=== PATIENT | female | born 1945 | race Caucasian/White ===

== ENCOUNTER → 2016-07-16 | Outpatient (CLI) | payer MEDICARE, BC ==
[2014-11-01 20:00] VITALS: BP 115/65
[~2016-07-16] MED LIST: CYAN10002 IM; GABA600T2 PO; LEVO50TA5 PO; MELO15TA23 PO
--- NOTE | 2016-07-16 11:07 | RAD ---
Indication chronic cough. History of smoking. PA and lateral views of the chest were obtained and are compared to a study 11/01/2014 There are background changes compatible with emphysema and/or fibrosis. A focal infiltrate is not seen. Gross congestive heart failure is not seen. An acute finding is not apparent. IMPRESSION: Chronic changes. No acute finding seen
== END | disposition home or self-care (01) ==
LOC: DXRADRC 10:41
PROVIDERS: ATTEND Physician Assistant Medical
DX: R05 Cough (principal); Z87.891 Personal history of nicotine dependence
CPT/HCPCS: 71020

== ENCOUNTER → 2016-12-07 | Outpatient (CLI) | payer MEDICARE, BC ==
[2014-11-01 20:00] VITALS: BP 115/65
--- NOTE | 2016-12-07 15:30 | RAD ---
Indication: Low back pain for 5 months. No known injury. Technique: Lumbosacral spine series contains 3 images. Comparison is from July 15, 2010. Findings: There is mild levocurvature centered at L3. There is retrolisthesis of 3 to 4 mm at L2-L3. There is endplate sclerosis at L2-L3. There is endplate spurring greatest at L3-L4. Facet hypertrophy is greatest from L3-L4 through L5-S1. Vascular calcifications are noted. Impression: Degenerative changes in the lumbar spine have increased from prior study. They are moderate overall.
== END | disposition home or self-care (01) ==
LOC: DXRADRC 10:29
PROVIDERS: ATTEND Physician Assistant Medical
DX: M47.896 Other spondylosis, lumbar region (principal); M43.8X6 Other specified deforming dorsopathies, lumbar region; Z96.641 Presence of right artificial hip joint
CPT/HCPCS: 72100

== ENCOUNTER → 2017-03-17 | Outpatient (CLI) | payer MEDICARE ==
[2014-11-01 20:00] VITALS: BP 115/65
--- NOTE | 2017-03-17 15:59 | RAD ---
DATE: 03/17/2017 EXAM: MAMMO [facility] SCREENING BILATERAL HISTORY: Screening Mammogram COMPARISON: Screening mammogram 10/23/2015, 06/25/2012 This study was interpreted with the benefit of Computerized Aided Detection (CAD). The breast parenchyma shows scattered fibroglandular densities. Breast parenchyma level B. FINDINGS: Bilateral digital 2-D and 3-D tomosynthesis CC and MLO views. No suspicious mass, calcification or architectural distortion. No significant change from prior examination. IMPRESSION: No mammographic evidence of malignancy. Recommend routine screening mammogram in 12 months. BI-RADS CATEGORY: 1 NEGATIVE RECOMMENDED FOLLOW-UP: 12M 12 MONTH FOLLOW-UP PQRS compliance statement: Patient information was entered into a reminder system with a target due date for the next mammogram. Mammography is a sensitive method for finding small breast cancers, but it does not detect them all and is not a substitute for careful clinical examination. A negative mammogram does not negate a clinically suspicious finding and should not result in delay in biopsying a clinically suspicious abnormality. "Our facility is accredited by the [employer] Mammography Program."
== END | disposition home or self-care (01) ==
LOC: MAMMO 13:22
PROVIDERS: ATTEND Physician Assistant Medical
DX: Z12.31 Encounter for screening mammogram for malignant neoplasm of breast (principal); Z87.891 Personal history of nicotine dependence
CPT/HCPCS: 77063; 77067

== ENCOUNTER → 2017-08-11 | Outpatient (CLI) | payer MEDICARE ==
[2014-11-01 20:00] VITALS: BP 115/65
--- NOTE | 2017-08-11 15:40 | RAD ---
Bilateral lower extremity arterial ultrasound, 08/11/2017: HISTORY: Cold feet, leg cramps, smoking history Duplex evaluation of the major arteries in both lower extremities was performed including grayscale, color-flow and spectral Doppler analysis. There are mild scattered atherosclerotic plaques bilaterally. On the right, the common femoral, superficial femoral and popliteal arteries demonstrate triphasic Doppler waveforms. No significant focal velocity acceleration is seen in those vessels to suggest significant focal stenosis. Patent anterior tibial, posterior tibial and peroneal arteries are present in the right lower leg demonstrating triphasic and biphasic Doppler waveforms. The right dorsalis pedis artery demonstrates a good amplitude biphasic Doppler waveform. On the left, the common femoral and superficial femoral arteries demonstrate triphasic waveforms while the popliteal Doppler waveform is biphasic. No significant focal velocity acceleration is seen in these vessels to suggest significant focal stenosis. Patent anterior tibial, posterior tibial and peroneal arteries are present in the left lower leg demonstrating biphasic Doppler waveforms. The left dorsalis pedis artery demonstrates a good amplitude biphasic Doppler waveform. IMPRESSION: Mild scattered atherosclerotic plaquing in both lower extremities with no duplex evidence of significant arterial occlusive disease. Electronically signed by: Keith Herrera MD (08/11/2017 3:36 PM) [facility]
== END | disposition home or self-care (01) ==
LOC: US 12:10
PROVIDERS: ATTEND Physician Assistant Medical
DX: I70.293 Other atherosclerosis of native arteries of extremities, bilateral legs (principal)
CPT/HCPCS: 93925

== ENCOUNTER 2018-01-19 13:47 | Emergency (ER) | payer MEDICARE ==
[~2018-01-19] VITALS: Ht 177.8 cm; Wt 83.9 kg
--- NOTE | 2018-01-19 14:47 | RAD ---
History: Fall, left ankle pain. Comparison: None. Findings: AP, lateral, and oblique views of the left ankle. Lateral ankle soft tissue swelling is seen. No acute fracture or dislocation is identified. Small Achilles tendon and plantar calcaneal enthesophytes are seen. Midfoot degeneration is present. Impression: 1. No acute osseous traumatic injury identified. 2. Lateral ankle soft tissue swelling. Electronically signed by: Evangelista Moe MD (01/19/2018 2:43 PM) [place] [id number]
--- NOTE | 2018-01-19 14:54 | RAD ---
EXAM: Head and cervical spine CT without contrast. HISTORY: Fall. TECHNIQUE: Computed tomographic images of the head and cervical spine were obtained without intravenous contrast. COMPARISON: None. FINDINGS: Head: There is no hemorrhage. There is no mass effect or midline shift. There is no hydrocephalus. The moyer-white matter differentiation pattern is intact. There are subtle areas of hypodensity within the cerebral white matter, likely due to chronic small vessel disease. There is near complete opacification of the visualized portions of the right ethmoid and maxillary sinus. The mastoid air cells are clear. No calvarial lesion is seen. Cervical spine: There is cervical kyphosis. There is mild anterolisthesis of C2 on C3, C3 on C4 and C4 on C5 and C7 on T1. There is degenerative endplate remodeling with disc space narrowing and osteophytosis primarily at C5-C6 and C6-C7. There are multiple endplate Schmorl's nodes. There is no fracture. There is no suspicious osseous lesion. There is a small bone island within C2. There is a small hemangioma within the right lateral aspect of C3 At C2-C3, there is severe left facet arthropathy. There is no stenosis. At C3-C4, there is moderate bilateral facet arthropathy. There is no stenosis.. At C4-C5, there is endplate osteophytosis. There is mild left facet arthropathy. There is no stenosis At C5-C6, there is a broad-based posterior central disc protrusion superimposed on a disc bulge and endplate osteophytosis. There is mild right facet arthropathy. There is bilateral uncovertebral ovary. There is moderate right and mild left foraminal stenosis. At C6-C7, there is a disc bulge and endplate osteophytosis. There is uncovertebral arthropathy. There is minimal left foraminal stenosis. IMPRESSION: 1. No acute intracranial finding or evidence of acute cervical spine trauma. 2. Multilevel degenerative change of the cervical spine, described in detail above. Electronically signed by: Maria T Hargrove MD (01/19/2018 2:51 PM) [id number]
--- NOTE | 2018-01-19 15:14 | PHYS DOC ---
Past History Past Medical History: Hypothyroid Past Surgical History: Hip Replacement, Tubal ligation Smoking: Non-smoker Alcohol Use: Occasionally Drug Use: None Adult General Chief Complaint Chief Complaint: ANKLE PROBLEM HPI HPI Patient is a 72 year old female who presents with complaining of a fall and injury to left ankle. Patient states she had an accidental fall prior to arrival to ER and her head without loss of consciousness and complaining of pain in left ankle with edema of left lower malleolus. Patient states she is able to bear weight but is painful. Patient denies focal neurodeficit and other injuries. Review of Systems Review of Systems Constitutional: Denies fever or chills [] Eyes: Denies change in visual acuity, redness, or eye pain [] HENT: Denies nasal congestion or sore throat [] Respiratory: Denies cough or shortness of breath [] Cardiovascular: No additional information not addressed in HPI [] GI: Denies abdominal pain, nausea, vomiting, bloody stools or diarrhea [] : Denies dysuria or hematuria [] Musculoskeletal: Denies back pain, reports joint pain [] Integument: Denies rash or skin lesions [] Neurologic: Denies headache, focal weakness or sensory changes [] Endocrine: Denies polyuria or polydipsia [] All other systems were reviewed and found to be within normal limits, except as documented in this note. Allergies Allergies Allergies Coded Allergies Type Severity Reaction Last Updated Verified No Known Drug Allergies 09/02/14 No Physical Exam Physical Exam Constitutional: Well developed, well nourished, no acute distress, non-toxic appearance. [] HENT: Normocephalic, atraumatic, oropharynx moist, no oral exudates, nose normal. [] Eyes: PERRLA, EOMI, conjunctiva normal, no discharge. [] Neck: Normal range of motion, no tenderness, supple, no stridor. [] Cardiovascular:Heart rate regular rhythm, no murmur [] Lungs & Thorax: Bilateral breath sounds clear to auscultation [] Abdomen: Bowel sounds normal, soft, no tenderness, no masses, no pulsatile masses. [] Skin: Warm, dry, no erythema, no rash. [] Back: No tenderness, no CVA tenderness. [] Extremities: Left ankle with edema of the lateral malleolus and painful range of motion without point tenderness, no neurovascular deficit, no cyanosis, no clubbing. Neurologic: Alert and oriented X 3, normal motor function, normal sensory function, no focal deficits noted. [] Psychologic: Affect normal, judgement normal, mood normal. [] Current Patient Data Vital Signs Vital Signs Date Time Temp Pulse Resp B/P (MAP) Pulse Ox O2 Delivery O2 Flow Rate FiO2 01/19/18 13:47 97.9 88 18 97 Room Air EKG EKG [] Radiology/Procedures Radiology/[place] [address] IMAGING REPORT Signed PATIENT: MERRY ERAZO ACCOUNT: [id number] : 1945 LOCATION: ER AGE: 72 SEX: F EXAM STATUS: REG ER ORD. PHYSICIAN: ADAM GASTON MD REASON: injury/pain PROCEDURE: ANKLE LEFT 3V History: Fall, left ankle pain. Comparison: None. Findings: AP, lateral, and oblique views of the left ankle. Lateral ankle soft tissue swelling is seen. No acute fracture or dislocation is identified. Small Achilles tendon and plantar calcaneal enthesophytes are seen. Midfoot degeneration is present. Impression: 1. No acute osseous traumatic injury identified. 2. Lateral ankle soft tissue swelling. Electronically signed by: Evangelista Arellano MD (01/19/2018 2:43 PM) [place] [id number] DICTATED AND SIGNED BY: EVANGELISTA ARELLANO MD DATE: 01/19/18 8932 CC: ADAM GASTON MD; GALINA ISAAC OR ~ [address] [address] IMAGING REPORT Signed PATIENT: MERRY ERAZO ACCOUNT: [id number] : 1945 LOCATION: ER AGE: 72 SEX: F EXAM STATUS: REG ER ORD. PHYSICIAN: ADAM GASTON MD REASON: fall PROCEDURE: CT HEAD AND CERVICAL SPINE WO EXAM: Head and cervical spine CT without contrast. HISTORY: Fall. TECHNIQUE: Computed tomographic images of the head and cervical spine were obtained without intravenous contrast. COMPARISON: None. FINDINGS: Head: There is no hemorrhage. There is no mass effect or midline shift. There is no hydrocephalus. The moyer-white matter differentiation pattern is intact. There are subtle areas of hypodensity within the cerebral white matter, likely due to chronic small vessel disease. There is near complete opacification of the visualized portions of the right ethmoid and maxillary sinus. The mastoid air cells are clear. No calvarial lesion is seen. Cervical spine: There is cervical kyphosis. There is mild anterolisthesis of C2 on C3, C3 on C4 and C4 on C5 and C7 on T1. There is degenerative endplate remodeling with disc space narrowing and osteophytosis primarily at C5-C6 and C6-C7. There are multiple endplate Schmorl's nodes. There is no fracture. There is no suspicious osseous lesion. There is a small bone island within C2. There is a small hemangioma within the right lateral aspect of C3 At C2-C3, there is severe left facet arthropathy. There is no stenosis. At C3-C4, there is moderate bilateral facet arthropathy. There is no stenosis.. At C4-C5, there is endplate osteophytosis. There is mild left facet arthropathy. There is no stenosis At C5-C6, there is a broad-based posterior central disc protrusion superimposed on a disc bulge and endplate osteophytosis. There is mild right facet arthropathy. There is bilateral uncovertebral ovary. There is moderate right and mild left foraminal stenosis. At C6-C7, there is a disc bulge and endplate osteophytosis. There is uncovertebral arthropathy. There is minimal left foraminal stenosis. IMPRESSION: 1. No acute intracranial finding or evidence of acute cervical spine trauma. 2. Multilevel degenerative change of the cervical spine, described in detail above. Electronically signed by: Maria T Westbrook MD (01/19/2018 2:51 PM) [id number] DICTATED AND SIGNED BY: MARIA T WESTBROOK MD DATE: 01/19/18 1447 CC: ADAM GASTON MD; GALINA ISAAC ~ Course & Med Decision Making Course & Med Decision Making Pertinent Imaging studies reviewed. (See chart for details) Evaluation of patient in ER showed 72-year-old male patient with a fall and injury to left ankle. Patient had unremarkable physical exam except for lateral malleolus edema and tenderness. X-ray did not show fracture. Patient had negative CT head and C-spine. Patient did not want to have pain medication in ER. Plan to apply gel cast splint and instruction to continue using her home cane and follow-up with her primary care physician. Jaz Disclaimer Dragon Disclaimer This electronic medical record was generated, in whole or in part, using a voice recognition dictation system. Departure Departure: Impression: Primary Impression: Moderate left ankle sprain Additional Impressions: Fall at home Head injury Disposition: HOME, SELF-CARE (at 1522) Condition: IMPROVED Referrals: GALINA ISAAC (PCP) Patient Instructions: Ankle Sprain, Fall Prevention and Home Safety Additional Instructions: Apply ice on the affected area Follow-up with your primary care physician in 3-5 days Return to ER if not getting better Scripts Hydrocodone Bit/Acetaminophen (NORCO 5-325 TABLET) 1 Each Tablet 1 TAB PO PRN Q6HRS PRN for PAIN, #14 TAB 0 Refills Prov: ADAM GASTON MD 01/19/18 Naproxen (NAPROSYN) 500 Mg Tablet 500 MG PO BID for pain, #20 TAB Prov: ADAM GASTON MD 01/19/18 Problem Qualifiers ADAM GASTON MD Jan 19, 2018 15:14
[2018-01-19 15:23] VITALS: BP 128/60
[2018-01-19] MEDS ORDERED: HYDR-3165 PO (15:24)
[2018-01-19] MEDS ORDERED: NAPR-683 PO (15:24)
== END 2018-01-19 15:30 | disposition home or self-care (01) ==
LOC: ER 13:47
DX: S93.402A Sprain of unspecified ligament of left ankle, initial encounter (principal); S09.90XA Unspecified injury of head, initial encounter; E03.9 Hypothyroidism, unspecified; W18.30XA Fall on same level, unspecified, initial encounter; Y93.89 Activity, other specified; Y92.89 Other specified places as the place of occurrence of the external cause; Y99.8 Other external cause status
CPT/HCPCS: 29515; 70450; 72125; 73610; 99284-25

== ENCOUNTER → 2018-03-02 | Outpatient (CLI) | payer MEDICARE ==
[~2018-03-02] MED LIST changes: +HYDR-3165 PO; +NAPR-683 PO
--- NOTE | 2018-03-02 13:18 | RAD ---
EXAM: Head an maxillofacial bone CT without contrast. HISTORY: Fall. Headache. TECHNIQUE: Computed tomographic images of the head and maxillofacial bones were obtained without contrast. *One or more of the following individualized dose reduction techniques were utilized for this examination: 1. Automated exposure control. 2. Adjustment of the mA and/or kV according to patient size. 3. Use of iterative reconstruction technique. COMPARISON: 01/19/2018. FINDINGS: There is no acute or subacute extra-axial or intraparenchymal hemorrhage. There is no mass effect or midline shift. There is no hydrocephalus. The moyer-white matter differentiation pattern is intact. There are subtle areas of hypodensity within the cerebral white matter, likely artifactual or due to chronic small vessel disease. No suspicious calvarial lesion is seen. There is complete opacification of the right frontal and maxillary sinus and near complete opacification of the right ethmoid sinus. There is obstruction of the right ostiomeatal unit and suspected superior medial right maxillary sinus wall erosion. There is no significant nasal septal deviation. The left paranasal sinuses are clear. The left ostiomeatal unit is patent. No fracture is seen. There is lucency surrounding the roots of the right second maxillary molar, likely due to a periapical abscess. IMPRESSION: 1. No acute intracranial finding. 2. Severe right maxillary and moderate right ethmoid sinus disease with obstruction of the right ostiomeatal unit and suspected erosion of the superior medial right maxillary sinus wall. There is no sinus wall expansion to suggest an underlying mucocele. 3. Suspected periapical abscess surrounding the roots of the second maxillary molar. Correlate with dental exam findings. Electronically signed by: Maria T Hargrove MD (03/02/2018 1:14 PM) [place] [id number]
== END | disposition home or self-care (01) ==
LOC: CT 12:47
PROVIDERS: ATTEND Physician Assistant Medical
DX: S09.90XD Unspecified injury of head, subsequent encounter (principal); R51 Headache; W19.XXXD Unspecified fall, subsequent encounter
CPT/HCPCS: 70450; 70486

== ENCOUNTER → 2018-03-21 | Outpatient (CLI) | payer MEDICARE ==
--- NOTE | 2018-03-28 08:28 | RAD ---
DATE: 03/21/2018 EXAM: MAMMO [facility] SCREENING BILATERAL HISTORY: Screening Mammogram COMPARISON: Mammogram 03/17/2017, 10/23/2015 This study was interpreted with the benefit of Computerized Aided Detection (CAD ). The breast parenchyma shows scattered fibroglandular densities. Breast parenchyma level B. FINDINGS: Bilateral digital 2-D and 3-D tomosynthesis CC and MLO views. Stable benign intramammary lymph node in the lateral right breast. No suspicious mass, calcification or architectural distortion. No significant change from prior examination IMPRESSION: No mammographic evidence of malignancy. Recommend routine screening mammogram in 12 months. BI-RADS CATEGORY: 1 NEGATIVE RECOMMENDED FOLLOW-UP: PQRS compliance statement: Patient information was entered into a reminder system with a target due date for the next mammogram. Mammography is a sensitive method for finding small breast cancers, but it does not detect them all and is not a substitute for careful clinical examination. A negative mammogram does not negate a clinically suspicious finding and should not result in delay in biopsying a clinically suspicious abnormality. "Our facility is accredited by the [employer] Mammography Program." MTDD
== END | disposition home or self-care (01) ==
LOC: MAMMO 13:28
PROVIDERS: ATTEND Physician Assistant Medical
DX: Z12.31 Encounter for screening mammogram for malignant neoplasm of breast (principal)
CPT/HCPCS: 77063; 77067

== ENCOUNTER 2018-05-06 23:15 | Emergency (ER) | payer MEDICARE ==
[~2018-05-06] VITALS: Ht 177.8 cm; Wt 83.9 kg
[~2018-05-06 23:15] MED LIST changes: -GABA600T2 PO; +GABA600T7 PO
[2018-05-06 23:45] VITALS: BP 124/63
[2018-05-07] MEDS ORDERED: IPRATRPIUM/ALBUTEROL 0.5/2.5MG 3 ML NEBU. ONE (00:35)
[2018-05-07] MEDS ORDERED: IPRATRPIUM/ALBUTEROL 0.5/2.5MG 3 ML NEBU. NEB ONE (01:00)
--- NOTE | 2018-05-07 01:26 | PHYS DOC ---
Past History Past Medical History: Hypothyroid Past Surgical History: Hip Replacement, Tubal ligation Smoking: Non-smoker Alcohol Use: Occasionally Drug Use: None Adult General Chief Complaint Chief Complaint: COUGH HPI HPI Patient is a 73-year-old female who presents with complaint of a few month history of sinus infection and has been on a total of 4 different sets of antibiotics. She states that she was first diagnosed little bit before . She states that she is on her final course of antibiotics right now and states that this evening she started to get some soreness in her chest and is worried about the possibility of a pneumonia or her heart. She states that it does hurt to cough and chest discomfort is worse with deep breathing. She denies any fever. She also denies any nausea, vomiting or diaphoresis. Review of Systems Review of Systems Constitutional: Denies fever or chills [] HENT: Complains of sinus congestion and sore throat [] Respiratory: Complains of cough and shortness of breath [] Cardiovascular: No additional information not addressed in HPI [] GI: Denies abdominal pain, nausea, vomiting or diarrhea [] Integument: Denies rash or skin lesions [] Neurologic: Denies headache, focal weakness or sensory changes [] All other systems were reviewed and found to be within normal limits, except as documented in this note. Current Medications Current Medications Current Medications Medications (Trade) Dose Ordered Sig/Bri Start Time Stop Time Status Last Admin Dose Admin Albuterol/ Ipratropium (Duoneb) 3 ml STK-MED ONCE 05/07/18 00:35 05/07/18 00:36 DC Allergies Allergies Allergies Coded Allergies Type Severity Reaction Last Updated Verified No Known Drug Allergies 09/02/14 No Physical Exam Physical Exam Constitutional: Well developed, well nourished, no acute distress, non-toxic appearance. [] HENT: Normocephalic, atraumatic, bilateral external ears normal, oropharynx moist, no oral exudates, nose normal. [] Eyes: PERRLA, EOMI, conjunctiva normal, no discharge. [] Neck: Normal range of motion, no tenderness, supple, no stridor. [] Cardiovascular:Heart rate regular rhythm, no murmur [] Lungs & Thorax: Bilateral breath sounds clear to auscultation [] Abdomen: Bowel sounds normal, soft, no tenderness. [] Skin: Warm, dry, no erythema, no rash. [] Extremities: No tenderness, no cyanosis, no clubbing, ROM intact, no edema. [] Neurologic: Alert and oriented X 3, no focal deficits noted. [] Current Patient Data Vital Signs Vital Signs Date Time Temp Pulse Resp B/P (MAP) Pulse Ox O2 Delivery O2 Flow Rate FiO2 05/07/18 00:45 94 Room Air 05/06/18 23:45 98.7 67 18 EKG EKG EKG demonstrates normal sinus rhythm with no ST segment abnormalities.[] Radiology/Procedures Radiology/Procedures [] Impressions: Chest x-ray demonstrates no acute process. Course & Med Decision Making Course & Med Decision Making Pertinent Labs and Imaging studies reviewed. (See chart for details) [] Dragon Disclaimer Dragon Disclaimer This electronic medical record was generated, in whole or in part, using a voice recognition dictation system. Departure Departure: Impression: Primary Impression: Chest wall pain Additional Impression: Upper respiratory infection Disposition: 01 HOME, SELF-CARE Condition: STABLE Referrals: GALINA ISAAC (PCP) Patient Instructions: Chest Wall Pain, Upper Respiratory Infection, Adult Problem Qualifiers Additional Impression: Upper respiratory infection URI type: unspecified URI Qualified Codes: J06.9 - Acute upper respiratory infection, unspecified BLANCA NOBLES Jr. DO May 07, 2018 01:26
--- NOTE | 2018-05-07 06:30 | EKG ---
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
--- NOTE | 2018-05-07 08:05 | RAD ---
Chest, PA and Lateral: Technique: PA and lateral views of the chest were obtained. History: Cough. Comparison: None. Findings: The heart and pulmonary vasculature appear within normal limits. The lungs are clear. The pleural margins are clear. Impression: No acute chest process is seen. Electronically signed by: Lonnie Ramírez MD (05/07/2018 8:03 AM) [facility]
== END 2018-05-07 01:48 | disposition home or self-care (01) ==
LOC: ER 23:15
DX: J06.9 Acute upper respiratory infection, unspecified (principal); R07.89 Other chest pain; E03.9 Hypothyroidism, unspecified
CPT/HCPCS: 71046; 93005; 94640; 99284; J7620

== ENCOUNTER → 2018-12-20 | Outpatient (CLI) | payer MEDICARE ==
[2018-12-20 16:39] LABS: ALBUMIN 3.4 g/dL (3.4-5.0); ALBUMIN/GLOBULIN RATIO 0.9 (1.0-1.7); CALCIUM 8.7 mg/dL (8.5-10.1); CREATININE 0.8 mg/dL (0.6-1.0); GFR 70.3; TOTAL BILIRUBIN 0.2 mg/dL (0.2-1.0); TOTAL PROTEIN 7.1 g/dL (6.4-8.2)
[2018-12-20 17:05] LABS: BACTERIA,URINE 0 /HPF (0-FEW); BILIRUBIN,URINE NEG (NEG); CLARITY,URINE HAZY; COLOR,URINE YELLOW; GLUCOSE,URINE NEG (NEG); NITRITE,URINE NEG (NEG); RBC,URINE 0 /HPF (0-2); SQUAMOUS EPITHELIAL CELL,UR OCC /LPF; UROBILINOGEN,URINE 0.2 mg/dL (0.2 mg/dL); WBC,URINE OCC /HPF (0-4)
[2018-12-20 17:33] LABS: BASO % 1 % (0-3); EOS # 0.1 x10^3/uL (0.0-0.7); EOS % 1 % (0-3); HEMATOCRIT 42.8 % (36.0-47.0); HEMOGLOBIN 14.2 g/dL (12.0-15.5); LYMPH # 2.1 x10^3/uL (1.0-4.8); LYMPH % 25 % (24-48); MEAN CORPUSCULAR HEMOGLOBIN 30 pg (25-35); MEAN CORPUSCULAR HGB CONC 33 g/dL (31-37); MEAN CORPUSCULAR VOLUME 90 fL (79-100); MONO # 0.7 x10^3/uL (0.0-1.1); MONO % 8 % (0-9); NEUT # 5.7 x10^3uL (1.8-7.7); NEUT % 66 % (31-73); PLATELET COUNT 310 x10^3/uL (140-400); RED BLOOD COUNT 4.78 x10^6/uL (3.50-5.40); RED CELL DISTRIBUTION WIDTH 14.4 % (11.5-14.5); WHITE BLOOD COUNT 8.7 x10^3/uL (4.0-11.0)
--- NOTE | 2018-12-21 03:38 | RAD ---
CT Head W/O Contrast: History: Balance and sinus infection Comparison: none Axial images were obtained without contrast. The moyer and white matter appears normal and symmetrical for the patients age. There is no mass effect, extraaxial fluid collections or hydrocephalus. There is no gross bleed. There is no focal loss of moyer-white matter distinction to suggest acute ischemia, i.e. stroke. Impression: No acute findings. End impression CT maxillofacial without contrast History: Imbalance and sinus infections Axial helical images of the face were obtained without contrast. Axial, sagittal and coronal reconstruction was performed. The nasal septum is mostly midline. The ostiomeatal complexes are narrow but patent. The paranasal sinuses are clear. The visualized osseous structures appear intact. The orbits appear normal. Impression: No acute findings. PQRS Compliance Statement: One or more of the following individualized dose reduction techniques were utilized for this examination: 1. Automated exposure control 2. Adjustment of the mA and/or kV according to patient size 3. Use of iterative reconstruction technique Electronically signed by: Rony [place] III, MD (12/21/2018 3:35 AM) [id number]
== END | disposition home or self-care (01) ==
LOC: CT 14:11
PROVIDERS: ATTEND Physician Assistant Medical
DX: R26.89 Other abnormalities of gait and mobility (principal); R53.83 Other fatigue; R60.9 Edema, unspecified; E53.8 Deficiency of other specified B group vitamins; N39.3 Stress incontinence (female) (male); E03.9 Hypothyroidism, unspecified
CPT/HCPCS: 36415; 70450; 70486; 80053; 80061; 81001; 82607; 82728; 83540; 83550; 85025

== ENCOUNTER → 2019-02-26 | Outpatient (CLI) | payer MEDICARE ==
--- NOTE | 2019-02-26 13:26 | RAD ---
EXAM: Cervical spine, 6 views; right shoulder, 3 views. HISTORY: Pain. COMPARISON: None. FINDINGS: Cervical spine: 6 views of the cervical spine are obtained. There is cervical kyphosis. There is minimal anterolisthesis of C2 on C3 and C3 on C4. There is degenerative endplate remodeling with disc space narrowing and osteophytosis at C5-C6 and C6-C7. There is multilevel facet arthropathy. There is partial ankylosis of the anterior right first and second ribs, a normal variant. Right shoulder: 3 views of the right shoulder obtained. There is no fracture, dislocation or subluxation. There is minimal acromioclavicular and glenohumeral osteoarthritis. IMPRESSION: 1. No acute osseous finding. 2. Multilevel degenerative change involving the cervical spine, primarily at C5-C6 and C6-C7. There is associated foraminal stenosis at these levels. 3. Minimal right acromioclavicular and glenohumeral osteoarthritis. Electronically signed by: Maria T Hargrove MD (02/26/2019 1:23 PM) [id number]
== END | disposition home or self-care (01) ==
LOC: DXRAD 11:48
PROVIDERS: ATTEND Physician Assistant Medical
DX: M43.12 Spondylolisthesis, cervical region (principal); M48.02 Spinal stenosis, cervical region; M25.78 Osteophyte, vertebrae; M40.292 Other kyphosis, cervical region; M19.011 Primary osteoarthritis, right shoulder
CPT/HCPCS: 72050; 73030

== ENCOUNTER → 2019-03-22 | Outpatient (CLI) | payer MEDICARE ==
--- NOTE | 2019-03-22 15:54 | RAD ---
EXAM: BILATERAL DIGITAL 3D SCREENING MAMMOGRAPHY. HISTORY: Routine mammographic screening. TECHNIQUE: Bilateral digital 3D and tomographic images were obtained in CC and MLO projections. Computer-aided detection was applied. COMPARISON: 03/21/2018. COMPOSITION: B. There are scattered areas of fibroglandular density. FINDINGS: Coarse an vascular calcifications are benign. There are no suspicious masses, microcalcifications or architectural distortion. The parenchymal pattern is stable. BI-RADS CATEGORY 2: Benign. RECOMMENDATION: 1. Routine screening mammography in one year. If mammography demonstrates dense breast tissue (heterogenously dense or extremely dense, category C or D), which could hide abnormalities, and if other risk factors for breast cancer have been identified, supplemental screening tests that may be suggested by the ordering physician may be of benefit. Dense breast tissue, in and of itself, is a relatively common condition. Therefore, this information is not provided to cause undue concern, but rather to raise awareness and to promote discussion with the referring physician regarding the presence of other risk factors, in addition to dense breast tissue. The results of this mammography examination is provided to the patient and referring physician. The patient should contact their referring physician if any questions or concerns exist regarding this report. PQRS compliance statement - Patient information was entered into a reminder system with a target due date for the next mammogram. "Our facility is accredited by the [employer] Mammography [employer]." Electronically signed by: Siomara Manjarrez MD (03/22/2019 3:51 PM) [id number]
== END | disposition home or self-care (01) ==
LOC: MAMMO 13:00
PROVIDERS: ATTEND Physician Assistant Medical
DX: Z12.31 Encounter for screening mammogram for malignant neoplasm of breast (principal); N64.89 Other specified disorders of breast
CPT/HCPCS: 77063; 77067

== ENCOUNTER → 2020-04-29 | Outpatient (CLI) | payer MEDICARE ==
--- NOTE | 2020-04-29 13:36 | RAD ---
EXAM: Chest, 2 views. HISTORY: Cough. COMPARISON: None. FINDINGS: 2 views of the chest are obtained. There is no infiltrate, pleural effusion or pneumothorax . The heart is normal in size. 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 IMPRESSION: No acute pulmonary finding. Electronically signed by: Maria T Hargrove MD (04/29/2020 1:34 PM) [id number]
== END ==
LOC: RAD 12:27
PROVIDERS: ATTEND Physician Assistant Medical
DX: R05 Cough (principal)
CPT/HCPCS: 71046

== ENCOUNTER → 2020-06-05 | Outpatient (CLI) | payer MEDICARE ==
--- NOTE | 2020-06-05 17:30 | RAD ---
EXAM: DUAL ENERGY X-RAY ABSORPTIOMETRY (DEXA). HISTORY: Postmenopausal screening. FINDINGS: The lowest measured T-score is -1.6 in the left femoral neck, based on a bone mineral densi ty of 0.745 g/cm^2. Refer to the worksheets for full detail. There has been a 6.9 percent decrease in density of the left hip and 1.7 percent decrease in density of the lumbar spine compared to a study performed 12/24/2015. IMPRESSION: 1. Low bone mass. Bone mineral density yields a T-score between -1.0 and -2.5. Fracture risk is incre ased. 2. FRAX report: Not calculated. METHODOLOGY: Dual energy x-ray absorptiometry was performed to measure bone mineral density. The foll owing analysis is based on the 2019 Official Positions of the International Society for Clinical Dens itometry: Measurements of the hips and the average of L1-L4 are preferred. When the spine and/or hip cannot be feasibly measured or interpreted, or in the setting of hyperparathyroidism, distal radial bone minera l density may be measured. The lumbar spine T-score is based on the average bone mineral density of L1-L4. In the setting of art ifact or anatomic abnormality, some lumbar levels may be excluded, and the remaining levels used for calculation. A single lumbar level is not used for diagnosis, and if only a single level is available for assessment, another anatomic site will be used to assign a diagnosis. The hip T-score is based on the bone mineral density measurement of the femoral neck or total proxima l femur of either side, whichever is lowest. Bilateral mean values are not used for diagnosis. The forearm T-score is derived from 33% of the distal radius of the nondominant forearm. Electronically signed by: Maria T Hargrove MD (06/05/2020 5:28 PM) [facility]
--- NOTE | 2020-06-06 18:59 | RAD ---
DATE: 06/05/2020 EXAM: MAMMO [facility] SCREENING BILATERAL HISTORY: Screening COMPARISON: Multiple prior exams including 03/22/2019, 03/21/2018, and 03/17/2017 This study was interpreted with the benefit of Computerized Aided Detection (CAD). Breast Density: SCATTERED The breast parenchyma shows scattered fibroglandular densities. Breast parenchyma level B. FINDINGS: No mass, suspicious calcification, or architectural distortion in either breast. IMPRESSION: No evidence of malignancy. BI-RADS CATEGORY: 1 NEGATIVE RECOMMENDED FOLLOW-UP: 12M 12 MONTH FOLLOW-UP PQRS compliance statement: Patient information was entered into a reminder system with a target due date for the next mammogram. Mammography is a sensitive method for finding small breast cancers, but it does not detect them all and is not a substitute for careful clinical examination. A negative mammogram does not negate a clinically suspicious finding and should not result in delay in biopsying a clinically suspicious abnormality. "Our facility is accredited by the [employer] Mammography Program."
== END ==
LOC: MAMMO 13:54
PROVIDERS: ATTEND Physician Assistant Medical
DX: Z12.31 Encounter for screening mammogram for malignant neoplasm of breast (principal); N95.8 Other specified menopausal and perimenopausal disorders
CPT/HCPCS: 77063; 77067; 77080

== ENCOUNTER → 2020-10-17 | Outpatient (CLI) | payer MEDICARE ==
--- NOTE | 2020-10-17 11:33 | RAD ---
EXAM: Bilateral knees, 3 views. HISTORY: Pain. COMPARISON: None. FINDINGS: 3 views of both knees are obtained. There is mild bilateral medial compartment joint space narrowing with degenerative subchondral sclerosis, subchondral cyst formation and spurring. There is trace bilateral knee joint fluid. No significant effusion is seen. IMPRESSION: Mild medial compartment osteoarthritis of both knees. No acute osseous finding. Electronically signed by: Maria T Hargrove MD (10/17/2020 11:30 AM) [id number]
== END ==
LOC: RAD 10:57
PROVIDERS: ATTEND Physician Assistant Medical
DX: M17.0 Bilateral primary osteoarthritis of knee (principal); M25.862 Other specified joint disorders, left knee; M25.861 Other specified joint disorders, right knee; M76.892 Other specified enthesopathies of left lower limb, excluding foot; M76.891 Other specified enthesopathies of right lower limb, excluding foot
CPT/HCPCS: 73562-50

== ENCOUNTER 2021-04-16 10:24 | Emergency (ER) | payer MEDICARE ==
[~2021-04-16] VITALS: Ht 177.8 cm; Wt 80.0 kg
[2021-04-16 10:55] LABS: BASO # 0.1 x10^3/uL (0.0-0.2); BASO % 1 % (0-3); EOS # 0.1 x10^3/uL (0.0-0.7); EOS % 1 % (0-3); HEMATOCRIT 46.5 % (36.0-47.0); HEMOGLOBIN 15.2 g/dL (12.0-15.5); LYMPH % 11 % (24-48); MEAN CORPUSCULAR HEMOGLOBIN 29 pg (25-35); MEAN CORPUSCULAR HGB CONC 33 g/dL (31-37); MEAN CORPUSCULAR VOLUME 89 fL (79-100); MONO # 0.3 x10^3/uL (0.0-1.1); MONO % 4 % (0-9); NEUT # 7.8 x10^3uL (1.8-7.7); NEUT % 84 % (31-73); PLATELET COUNT 280 x10^3/uL (140-400); RED BLOOD COUNT 5.21 x10^6/uL (3.50-5.40); RED CELL DISTRIBUTION WIDTH 13.5 % (11.5-14.5); WHITE BLOOD COUNT 9.3 x10^3/uL (4.0-11.0)
--- NOTE | 2021-04-16 10:55 | RAD ---
XR CHEST 1V INDICATION: CP COMPARISON STUDY: 04/29/2020. FINDINGS: Lungs: Normal lung volume. No pulmonary mass or consolidation. The tracheobronchial tree and hilar st ructures are normal. Pleura: No pleural effusion or pneumothorax. Heart and Mediastinum: The cardiomediastinal silhouette is normal. The great vessels of the thorax ar e normal. IMPRESSION: No consolidation. Electronically signed by: Ellis Santoyo MD (04/16/2021 10:53 AM) [id number]
--- NOTE | 2021-04-16 11:00 | PHYS DOC ---
Past History Past Medical History: Hypothyroid Additional Past Medical Histor: sinus, chronic muslce aches Past Surgical History: Hip Replacement, Tubal ligation Smoking: Non-smoker Alcohol Use: Occasionally Drug Use: None General Adult EDM: Chief Complaint: CHEST PAIN HPI: HPI: 76-year-old female presents with chest pain. The patient has been having intermittent chest discomfort and shortness of breath for a couple of months. It started out as a cold. Her nasal congestion and cough went away but the patient still had fatigue and decreased exercise tolerance. She feels like this is gotten worse the last 4 days. She feels like she gets short of breath just walking across the room. When she has chest discomfort is a central chest pressure of mild intensity. She notices the shortness of breath more than the pain. She has never had a cardiac cath or stress test. She is vaccinated against COVID-19. She has never tested positive for COVID-19. Denies fever or chills. Review of Systems: Review of Systems: Constitutional: Denies fever or chills Eyes: Denies change in visual acuity HENT: Denies nasal congestion or sore throat Respiratory: shortness of breath Cardiovascular: Chest pain GI: Denies abdominal pain, nausea, vomiting, bloody stools or diarrhea : Denies dysuria Musculoskeletal: Denies back pain or joint pain Integument: Denies rash Neurologic: Denies headache, focal weakness or sensory changes Endocrine: Denies polyuria or polydipsia Lymphatic: Denies swollen glands Psychiatric: Denies depression or anxiety Allergies: Allergies: Allergies Coded Allergies Type Severity Reaction Last Updated Verified No Known Drug Allergies 09/02/14 No Physical Exam: PE: Constitutional: Well developed, well nourished, no acute distress, non-toxic appearance. [] HENT: Normocephalic, atraumatic, bilateral external ears normal, oropharynx moist, no oral exudates, nose normal. [] Eyes: PERRLA, EOMI, conjunctiva normal, no discharge. [] Neck: Normal range of motion, no tenderness, supple, no stridor. [] Cardiovascular: Heart rate 99, regular rhythm, no murmur [] Lungs & Thorax: Bilateral breath sounds clear to auscultation [] Abdomen: Bowel sounds normal, soft, no tenderness, no masses, no pulsatile masses. [] Skin: Warm, dry, no erythema, no rash. [] Back: No tenderness, no CVA tenderness. [] Extremities: No tenderness, no cyanosis, no clubbing, ROM intact, no edema. [] Neurologic: Alert and oriented X 3, normal motor function, normal sensory function, no focal deficits noted. [] Psychologic: Affect normal, judgement normal, mood concerned. [] Current Patient Data: Labs: Laboratory Tests Test 04/16/21 10:44 White Blood Count 9.3 x10^3/uL (4.0-11.0) Red Blood Count 5.21 x10^6/uL (3.50-5.40) Hemoglobin 15.2 g/dL (12.0-15.5) Hematocrit 46.5 % (36.0-47.0) Mean Corpuscular Volume 89 fL (79-100) Mean Corpuscular Hemoglobin 29 pg (25-35) Mean Corpuscular Hemoglobin Concent 33 g/dL (31-37) Red Cell Distribution Width 13.5 % (11.5-14.5) Platelet Count 280 x10^3/uL (140-400) Neutrophils (%) (Auto) 84 % (31-73) H Lymphocytes (%) (Auto) 11 % (24-48) L Monocytes (%) (Auto) 4 % (0-9) Eosinophils (%) (Auto) 1 % (0-3) Basophils (%) (Auto) 1 % (0-3) Neutrophils # (Auto) 7.8 x10^3uL (1.8-7.7) H Lymphocytes # (Auto) 1.0 x10^3/uL (1.0-4.8) Monocytes # (Auto) 0.3 x10^3/uL (0.0-1.1) Eosinophils # (Auto) 0.1 x10^3/uL (0.0-0.7) Basophils # (Auto) 0.1 x10^3/uL (0.0-0.2) Vital Signs: Vital Signs Date Time Temp Pulse Resp B/P (MAP) Pulse Ox O2 Delivery O2 Flow Rate FiO2 04/16/21 10:29 98.2 100 18 134/65 (88) 90 Room Air EKG: EKG: Sinus rhythm, rate 99, normal axis, no ST elevation or depression. [] Radiology/Procedures: Radiology/Procedures: [] Impressions: CTA CHEST History: Hypoxia, chest pain, rule out PE Comparison: None. Technique: CTA of the pulmonary arteries with intravenous contrast. 3-D postprocessing was performed. Findings: Pulmonary arteries: Bilateral pulmonary emboli. Large right main pulmonary artery embolism extending into the upper, middle and lower lobar pulmonary arteries and distally. Left main pulmonary artery embolism extending into the left upper and lower lobar arteries and branches. Aorta and great vessels: No aneurysm or dissection of the aortic arch or t horacic aorta. Thyroid: No significant abnormalities. Mediastinum and sarah: No mediastinal masses or adenopathy is seen. Esophagus: The visualized esophagus is normal. Heart: The heart is normal in size. There is no pericardial effusion. Flattening of the intraventricular septum and mild contrast reflux into the IVC. Airways, Lungs, Pleura: Right upper lobe thin-walled 3.3 cm pneumatocele. Mild peripheral pleural-based consolidative changes at the right upper and lower lobe likely early pulmonary infarcts changes. No pleural effusion or pneumothorax. No significant consolidation. Upper abdomen: 2.3 cm cyst adjacent to the gallbladder fossa right hepatic lobe inferiorly. Osseous structures and soft tissues: Within normal limits for age. Impression: 1. Large bilateral main pulmonary artery emboli extending into the lobar, segmental and distal pulmonary arteries. Mild evidence of right heart strain and early pulmonary infarct. Findings discussed with FELICIA ENAMORADO DO at 04/16/2021 12:04 PM. FOR INTERNAL CODING PURPOSES RESULT CODE: (C) ------ Exposure: One or more of the following individualized dose reduction techniques were utilized for this examination: 1. Automated exposure control 2. Adjustment of the mA and/or kV according to patient size 3. Use of iterative reconstruction technique. Electronically signed by: David Katz MD (04/16/2021 12:07 PM) [id number] Heart Score: C/O Chest Pain: Yes HEART Score for Chest Pain: HEART Score for Chest Pain Response (Comments) Value History Slighlty/Non-Suspicious 0 ECG Normal 0 Age > 65 2 Risk Factors 1 or 2 Risk Factors 1 Troponin >3 x Normal Limit 2 Total 5 Risk Factors: Risk Factors: DM, Current or recent (<one month) smoker, HTN, HLP, family history of CAD, obesity. Risk Scores: Score 0 - 3: 2.5% MACE over next 6 weeks - Discharge Home Score 4 - 6: 20.3% MACE over next 6 weeks - Admit for Clinical Observation Score 7 - 10: 72.7% MACE over next 6 weeks - Early Invasive Strategies Course & Med Decision Making: Course & Med Decision Making Pertinent Labs and Imaging studies reviewed. (See chart for details) The patient's labs are significant for an elevated proBNP and an elevated troponin of over 300. Given her hypoxia with no history of hypoxia, I have ordered CT angiogram of the chest. The patient does have a large pulmonary embolus bilaterally. See official read for details. I will start the patient on heparin drip and admit her to the hospital. I spoke with Dr. Barboza and he has recommended the patient be transferred to [facility]. They will have a bed available later today. We will care for the patient in the emergency room until that time. [] Dragon Disclaimer: Dragmerritt Disclaimer: This electronic medical record was generated, in whole or in part, using a voice recognition dictation system. Departure Departure: Impression: Primary Impression: Pulmonary embolism Qualified Codes: I26.94 - Multiple subsegmental pulmonary emboli without acute cor pulmonale Additional Impression: Elevated troponin Disposition: 02 SHORT TERM HOSPITAL Admitting Physician: Regina Barboza Condition: GUARDED Referrals: GAILNA ISAAC (PCP) FELICIA ENAMORADO DO Apr 16, 2021 11:00
[2021-04-16 11:05] LABS: CALCIUM 8.7 mg/dL (8.5-10.1); CREATININE 0.9 mg/dL (0.6-1.0); GFR 60.9; POTASSIUM 4.5 mmol/L (3.5-5.1)
[2021-04-16 11:11] LABS: ALBUMIN 3.6 g/dL (3.4-5.0); TOTAL BILIRUBIN 0.5 mg/dL (0.2-1.0); TOTAL PROTEIN 7.1 g/dL (6.4-8.2)
[2021-04-16] MEDS ORDERED: IOHEXOL 350 MG/ML 100 ML VIAL. IV ONE (11:30)
[2021-04-16] MEDS ORDERED: ONDANSETRON PF 4 MG/2 ML VIAL. IVP ONE (11:30)
[2021-04-16] MEDS ORDERED: diphenhydrAMINE 50 MG/ML VIAL IVP ONE (11:30)
--- NOTE | 2021-04-16 12:10 | RAD ---
CTA CHEST History: Hypoxia, chest pain, rule out PE Comparison: None. Technique: CTA of the pulmonary arteries with intravenous contrast. 3-D postprocessing was performed. Findings: Pulmonary arteries: Bilateral pulmonary emboli. Large right main pulmonary artery embolism extending into the upper, middle and lower lobar pulmonary arteries and distally. Left main pulmonary artery em bolism extending into the left upper and lower lobar arteries and branches. Aorta and great vessels: No aneurysm or dissection of the aortic arch or thoracic aorta. Thyroid: No significant abnormalities. Mediastinum and sarah: No mediastinal masses or adenopathy is seen. Esophagus: The visualized esophagus is normal. Heart: The heart is normal in size. There is no pericardial effusion. Flattening of the intraventricu lar septum and mild contrast reflux into the IVC. Airways, Lungs, Pleura: Right upper lobe thin-walled 3.3 cm pneumatocele. Mild peripheral pleural-bas ed consolidative changes at the right upper and lower lobe likely early pulmonary infarcts changes. N o pleural effusion or pneumothorax. No significant consolidation. Upper abdomen: 2.3 cm cyst adjacent to the gallbladder fossa right hepatic lobe inferiorly. Osseous structures and soft tissues: Within normal limits for age. Impression: 1. Large bilateral main pulmonary artery emboli extending into the lobar, segmental and distal pulmo nary arteries. Mild evidence of right heart strain and early pulmonary infarct. Findings discussed with FELICIA ENAMORADO DO at 04/16/2021 12:04 PM. FOR INTERNAL CODING PURPOSES RESULT CODE: (C) ------ Exposure: One or more of the following individualized dose reduction techniques were utilized for thi s examination: 1. Automated exposure control 2. Adjustment of the mA and/or kV according to patient size 3. Use of iterative reconstruction technique. Electronically signed by: David Katz MD (04/16/2021 12:07 PM) [id number]
[2021-04-16] MEDS ORDERED: HEPARIN for IV BOLUS 10,000 UNIT/10 ML VIAL. IV PRN ×3 (12:15)
[2021-04-16] MEDS ORDERED: HEPARIN for IV BOLUS 10,000 UNIT/10 ML VIAL. IV ONE (12:15)
[2021-04-16] MEDS ORDERED: HEPARIN 25,000UTS/250ML PREMIX 250 ML IV PRN (12:15)
[2021-04-16 14:55] VITALS: BP 120/72
--- NOTE | 2021-04-16 15:13 | RAD ---
EXAMINATION: US BILATERAL LOWEREXTREMITY VENOUS DOPPLER, 04/16/2021 2:34 PM CLINICAL INDICATION: Known PE COMPARISON: None Available. PROCEDURE: Multiple grayscale, color Doppler and spectral Doppler sonographic images of bilateral low er extremity were obtained. FINDINGS: The left distal superficial femoral vein is incompletely compressible and contains echogeni c thrombus. The left common femoral vein, remainder of the left superficial femoral vein, left poplit eal vein, and left calf veins are patent with normal compressibility and color and spectral Doppler f low. The right common femoral, superficial vein, popliteal vein, and calf veins are patent with franklyn l compressibility and color and spectral Doppler flow. IMPRESSION: 1. Positive exam for nonocclusive deep venous thrombosis in the distal left superficial femoral vein. 2. No evidence of deep venous thrombosis in the right lower extremity. FOR INTERNAL CODING PURPOSES Critical result: Findings discussed with the patient's nurse at 04/16/2021 3:10 PM. RESULT CODE: (C) Electronically signed by: Elise Worrell MD (04/16/2021 3:11 PM) [id number]
--- NOTE | 2021-04-16 20:55 | EKG ---
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
== END 2021-04-16 16:11 | disposition short-term general hospital (02) ==
LOC: ER 10:24
DX: I26.94 Multiple subsegmental thrombotic pulmonary emboli without acute cor pulmonale (principal); R77.8 Other specified abnormalities of plasma proteins; E03.9 Hypothyroidism, unspecified; Z20.822 Contact with and (suspected) exposure to COVID-19
CPT/HCPCS: 36415; 71045; 71275; 80053; 83880; 84484; 85025; 85610; 85730; 87426; 93005; 93970; 96365; 96376; 99285; C9803; J1644; Q9967; U0003

== ENCOUNTER 2021-06-19 11:25 | Emergency (ER) | payer MEDICARE ==
[2021-06-19] MEDS ORDERED: IOHEXOL 350 MG/ML 100 ML VIAL. IV ONE (12:00)
--- NOTE | 2021-06-19 12:00 | PHYS DOC ---
Past History Past Medical History: Hypothyroid Additional Past Medical Histor: sinus, chronic muslce aches Past Surgical History: Hip Replacement, Tubal ligation Smoking: Non-smoker Alcohol Use: Occasionally Drug Use: None General Adult EDM: Chief Complaint: CHEST PAIN HPI: HPI: Patient is a 76-year-old female with chest pain that started last night. She describes it as a stabbing sensation that comes and goes. Seems to only last for a minute or 2. There is some association with a squeezing sensation in the left upper extremity. She does not have any numbness or tingling down the arm. She does not have any pain in the arm at this time. She does have a history of previous pulmonary embolism and takes Eliquis. She states that she has not missed any doses but she is concerned about a potential recurrence of PE. She does feel some shortness of breath though this is fairly mild. She states that she was much more short of breath when diagnosed with her pulmonary embolus initially. I believe April 26 was the date that the patient was diagnosed. She has not had a fever or cough, no recent trauma. Review of Systems: Review of Systems: Constitutional: Denies fever Eyes: Denies change in visual acuity or eye pain HENT: Denies sore throat Respiratory: Denies shortness of breath Cardiovascular: Reports chest pain GI: Denies abd pain : Denies dysuria Musculoskeletal: Denies back or extremity injury Integument: Denies rash or skin lesions Neurologic: Denies headache, focal weakness or sensory changes All other systems were reviewed and found to be within normal limits, except as documented in this note. Current Medications: Current Meds: Current Medications Medications (Trade) Dose Ordered Sig/Bri Start Time Stop Time Status Last Admin Dose Admin Iohexol (Omnipaque 350 Mg/ml) 100 ml 1X ONCE 06/19/21 12:00 06/19/21 12:01 UNV Allergies: Allergies: Allergies Coded Allergies Type Severity Reaction Last Updated Verified No Known Drug Allergies 09/02/14 No Physical Exam: PE: Constitutional: Well developed, well nourished, no acute distress, non-toxic appearance. HENT: Normocephalic, atraumatic, bilateral external ears normal, mucosa moist, nose normal. Eyes: EOMI, conjunctiva normal, no discharge. Neck: Normal range of motion, supple, no stridor, no meningeal signs. Cardiovascular: Regular rate and rhythm Lungs & Thorax: Bilateral breath sounds clear to auscultation Abdomen: Soft, no tenderness or obvious masses Skin: Warm, dry, no erythema, no rash. Extremities: No tenderness, no cyanosis, no clubbing, ROM intact, no edema. Neurologic: Alert and oriented, normal motor function, normal sensory function, no focal deficits noted. Psychologic: Affect normal, judgement normal, mood normal. EKG: EKG: Twelve-lead EKG demonstrates a sinus rhythm with an overall rate of 60 bpm. CA, QRS and QT corrected intervals are within normal limits. No ST segment elevation or depression. [] Radiology/Procedures: Radiology/Procedures: [] Heart Score: C/O Chest Pain: Yes HEART Score for Chest Pain: HEART Score for Chest Pain Response (Comments) Value History Slighlty/Non-Suspicious 0 ECG Normal 0 Age > 65 2 Risk Factors 1 or 2 Risk Factors 1 Troponin < Normal Limit 0 Total 3 Risk Factors: Risk Factors: DM, Current or recent (<one month) smoker, HTN, HLP, family history of CAD, obesity. Risk Scores: Score 0 - 3: 2.5% MACE over next 6 weeks - Discharge Home Score 4 - 6: 20.3% MACE over next 6 weeks - Admit for Clinical Observation Score 7 - 10: 72.7% MACE over next 6 weeks - Early Invasive Strategies Course & Med Decision Making: Course & Med Decision Making Pertinent Labs and Imaging studies reviewed. (See chart for details) [] This is a 76-year-old female with chest pain. Heart score 3. CT of the chest was negative for pulmonary embolus or other acute process. Troponin and EKG are unremarkable. The rest of her lab panel was unrevealing. Patient will be discharged with instructions to follow-up with her primary care physician, return to the emergency department should her pain recur or other concerns arise, she stable for discharge at this time. Dragon Disclaimer: Jaz Disclaimer: This electronic medical record was generated, in whole or in part, using a voice recognition dictation system. Departure Departure: Impression: Primary Impression: Chest pain Disposition: HOME / SELF CARE / HOMELESS Condition: STABLE Referrals: GALINA ISAAC (PCP) Patient Instructions: Chest Pain (Nonspecific) VARSHA BATISTA MD Jun 19, 2021 12:00
--- NOTE | 2021-06-19 12:54 | EKG ---
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
[2021-06-19 13:08] LABS: BASO # 0.1 x10^3/uL (0.0-0.2); BASO % 1 % (0-3); EOS # 0.1 x10^3/uL (0.0-0.7); EOS % 2 % (0-3); HEMATOCRIT 40.6 % (36.0-47.0); HEMOGLOBIN 13.4 g/dL (12.0-15.5); LYMPH # 2.1 x10^3/uL (1.0-4.8); LYMPH % 23 % (24-48); MEAN CORPUSCULAR HEMOGLOBIN 29 pg (25-35); MEAN CORPUSCULAR HGB CONC 33 g/dL (31-37); MEAN CORPUSCULAR VOLUME 89 fL (79-100); MONO # 0.7 x10^3/uL (0.0-1.1); MONO % 8 % (0-9); NEUT # 6.1 x10^3uL (1.8-7.7); NEUT % 67 % (31-73); PLATELET COUNT 268 x10^3/uL (140-400); RED BLOOD COUNT 4.58 x10^6/uL (3.50-5.40); RED CELL DISTRIBUTION WIDTH 14.5 % (11.5-14.5); WHITE BLOOD COUNT 9.1 x10^3/uL (4.0-11.0)
[2021-06-19 13:09] LABS: POTASSIUM ISTAT 3.9 mmol/L (3.5-5.0)
[2021-06-19 13:10] LABS: HEMOGLOBIN ISTAT 13.9 gm/dL
--- NOTE | 2021-06-19 13:14 | RAD ---
CTA CHEST History: Pain, dyspnea, history of PE. Comparison: CT chest 04/16/2021. Technique: CTA of the pulmonary arteries with intravenous contrast. 3-D postprocessing was performed. Findings: Pulmonary arteries: No pulmonary embolism. Aorta and great vessels: No aneurysm or dissection of the aortic arch or thoracic aorta. Thyroid: No significant abnormalities. Mediastinum and sarah: No mediastinal masses or adenopathy is seen. Esophagus: The visualized esophagus is normal. Heart: The heart is normal in size. There is no pericardial effusion. Airways, Lungs, Pleura: Right upper lobe 3 cm pneumatocele redemonstrated. No airspace consolidation, pleural effusion or pneumothorax. Upper abdomen: Unchanged hepatic cyst adjacent to the gallbladder fossa. Osseous structures and soft tissues: Within normal limits for age. Impression: 1. No pulmonary embolism. No acute findings in the chest. ------ Exposure: One or more of the following individualized dose reduction techniques were utilized for thi s examination: 1. Automated exposure control 2. Adjustment of the mA and/or kV according to patient size 3. Use of iterative reconstruction technique. Electronically signed by: David Katz MD (06/19/2021 1:11 PM) [id number]
[2021-06-19 13:57] LABS: ALBUMIN 3.1 g/dL (3.4-5.0); DIRECT BILIRUBIN 0.1 mg/dL (0.0-0.2); MAGNESIUM 1.9 mg/dL (1.8-2.4); TOTAL BILIRUBIN 0.4 mg/dL (0.2-1.0)
== END 2021-06-19 18:51 | disposition home or self-care (01) ==
LOC: ER 11:25
DX: R07.89 Other chest pain (principal); R06.02 Shortness of breath; E03.9 Hypothyroidism, unspecified
CPT/HCPCS: 36415; 71275; 80047; 80076; 83690; 83735; 83880; 84484; 85025; 93005; 99285; Q9967